=== PATIENT | male | born 1985 | race Two or more races ===

== ENCOUNTER 2025-05-11 12:03 | Emergency (ER) | payer MEDICAID, SELFPAY ==
--- NOTE | 2025-05-11 12:10 | EKG_ITS ---
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
[2025-05-11 12:20] VITALS: BP 133/84; PULSE 84; RESP 16; TEMP 36.6; O2SAT 98
--- NOTE | 2025-05-11 12:25 | XR_ITS ---
Examination: PA lateral chest 2 views TECHNIQUE: Upright PA lateral chest 2 views Date and time: May 11, 2025 1239 hours INDICATIONS: Chest pain today. FINDINGS: Normal heart size. Lungs are clear. Pectus of sclerotic deformity IMPRESSION: No active disease
--- NOTE | 2025-05-11 12:25 | PD.EDRME ---
Rapid Medical Screening Exam RME Arrival date/time: 05/11/25 12:03 39-year-old male with a history of type 2 diabetes presents to the emergency room with a chief complaint of left-sided sternal chest pain that radiates to his left arm x 2 days. Patient states he drank 5 energy drinks yesterday. I have greeted and performed a focused initial assessment of this patient. A comprehensive ED assessment and evaluation of the patient, analysis of all test results, and completion of the medical decision making process will be conducted by additional ED providers. Chief Complaint: General Adult/Misc Complain Time Seen by Provider: 05/11/25 12:08 Vital signs: Vital Signs Temperature 97.8 F 05/11/25 12:20 Pulse Rate 84 05/11/25 12:20 Respiratory Rate 16 05/11/25 12:20 Blood Pressure 133/84 H 05/11/25 12:20 Pulse Oximetry (%) 98 05/11/25 12:20 Oxygen Delivery Method Room Air 05/11/25 12:20 Vital signs reviewed by provider: Yes
[2025-05-11 12:53] LABS: Basophils # (Auto) 0.1 Thou/mm3 (0.0-0.2); Basophils % (Auto) 1 % (0-2.5); Eosinophils # (Auto) 0.2 Thou/mm3 (0.0-0.5); Eosinophils % (Auto) 2 % (0-10); Hematocrit 47.1 % (41.0-53.0); Hemoglobin 16.4 g/dL (13.5-16.0); Immature Granulocytes Auto 0.02 Thou/mm3 (0.00-0.00); Lymphocytes # (Auto) 3.0 Thou/mm3 (1.0-4.8); Lymphocytes % (Auto) 32 % (10-50); Mean Corpuscular HGB Conc 34.8 g/dl (31.0-37.0); Mean Corpuscular Hemoglobin 28.2 pg (25.0-35.0); Mean Corpuscular Volume 81 fL (80-100); Monocytes # (Auto) 0.7 Thou/mm3 (0.0-0.8); Monocytes % (Auto) 8 % (0-12); Neutrophils # (Auto) 5.3 Thou/mm3 (1.8-7.7); Neutrophils % (Auto) 56 % (37-80); Nucleated Red Blood Cell # 0.00 Thou/mm3 (0.00-0.00); Nucleated Red Blood Cell % 0 /100 WBC (0); Platelet Count 338 Thou/mm3 (140-440); RDW Standard Deviation 38.0 fL (35.1-43.9); Red Blood Count 5.81 Miln/mm3 (4.50-5.90); White Blood Count 9.4 Thou/mm3 (3.8-10.6)
[2025-05-11 13:04] LABS: Collection Type, Urine Clean Catch; Squamous Epithelial Cell,Urine 0 /hpf (0-5)
[2025-05-11 13:09] LABS: INR 1.0 (0.9-1.3); Partial Thromboplastin Time 27.6 Seconds (22.0-36.0); Prothrombin Time 10.7 Seconds (9.0-12.2)
[2025-05-11 13:10] LABS: B-Type Natriuretic Peptide < 20 pg/mL (0-100)
[2025-05-11 13:13] LABS: Bilirubin,Urine Negative (Negative); Blood,Urine Negative (Negative); Clarity,Urine Clear (Clear/Hazy); Color,Urine Colorless (Lt Yel-Yel); Culture Indicated,Urine Not Indicated; Glucose, Urine 4+ (Negative); Ketones,Urine Negative (Negative); Leukocyte Esterase,Urine Negative (Negative); Nitrite,Urine Negative (Negative); PH,Urine 6.0 (5.0-7.0); Protein,Urine Negative (Neg - Trace); RBC,Urine 1 /hpf (0-3); Specific Gravity,Urine 1.039 (1.001-1.035); Urobilinogen,Urine Negative mg/dL (0.0-1.0); WBC,Urine < 1 /hpf (0-5)
[2025-05-11 13:13] LABS: Alanine Aminotransferase 29 U/L (10-49); Albumin, Serum 4.8 gm/dL (3.5-5.0); Albumin/Globulin Ratio 1.5 (1.2-2.2); Alkaline Phosphatase 117 U/L (46-116); Anion Gap 15 (7-16); Aspartate Amino Transferase 24 U/L (0-34); BUN/Creatinine Ratio 10 Ratio (12-20); Bilirubin,Total 0.5 mg/dL (0.3-1.2); Blood Urea Nitrogen 12 mg/dL (9-23); Calcium 9.7 mg/dL (8.3-10.6); Calcium (Corrected) 9.7 mg/dL (8.5-10.1); Carbon Dioxide 26.9 mMol/L (20.0-31.0); Chloride 94 mMol/L (98-107); Creatinine (Component) 1.2 mg/dL (0.6-1.3); Estimated Creatinine Clearance 88.9 mL/min (>60); Globulin 3.1 gm/dL (2.3-3.5); Glucose 315 mg/dL (74-106); Magnesium 2.2 mg/dL (1.6-2.6); Osmolality,Calculated 283 (275-295); Potassium 3.8 mMol/L (3.4-5.1); Sodium 136 mMol/L (136-145); Total Protein 7.9 gm/dL (5.7-8.2); Troponin I < 0.020 ng/mL (0.0-0.045); eGFR > 60 See Note
[2025-05-11 13:23] LABS: Amphetamine/Methamp Scrn,U Negative (Negative); Barbiturate Screen,Urine Negative (Negative); Benzodiazepines Screen,Urine Negative (Negative); Benzoylecgonine Screen, Ur Negative (Negative); Fentanyl Screen,Urine Negative (Negative); Opiate Screen,Urine Negative (Negative); THC Screen,Urine Positive (Negative)
--- NOTE | 2025-05-11 14:25 | EDNOTE_ITS ---
ED General RME/HPI General Chief complaint: General Adult/Misc Complain Stated complaint: WANTS HEART CHECKED Time Seen by Provider: 05/11/25 12:08 Arrival date/time: 05/11/25 12:03 CC: Left anterior chest pain HPI ongoing for 1 day. Patient admits to drinking 5 energy drinks yesterday, and has had the chest pain since. The patient is a diabetic on insulin Jardiance and metformin. Patient denies fever chills shortness of breath or difficulty breathing. Patient's pain is reproducible with palpation demonstrated to me by the patient during the assessment and exam. RME / HPI RME / HPI narrative: 05/11/25 12:03 39-year-old male with a history of type 2 diabetes presents to the emergency room with a chief complaint of left-sided sternal chest pain that radiates to his left arm x 2 days. Patient states he drank 5 energy drinks yesterday. I have greeted and performed a focused initial assessment of this patient. A comprehensive ED assessment and evaluation of the patient, analysis of all test results, and completion of the medical decision making process will be conducted by additional ED providers. Related Data Home Medications ?Medication ?Instructions ?Recorded ?Confirmed metformin 1,000 mg tablet 1,000 mg PO DAILY 07/31/22 1 09/30/21 Previous Rx's ?Medication ?Instructions ?Recorded benzonatate 100 mg capsule 100 mg PO BID PRN cough #14 caps 08/22/22 ondansetron 4 mg disintegrating 4 mg PO Q8H PRN nausea and 08/22/22 tablet vomiting #20 tabs metoclopramide HCl 10 mg tablet 10 mg PO Q6H PRN nause a and 04/17/24 (Reglan) vomiting #20 tabs Allergies Allergy/AdvReac Type Severity Reaction Status Date / Time tomato Allergy Severe Hives Verified 05/11/25 12:08 Review of Systems Review of Systems Narrative Review of Systems: GEN: No fever, no chills, no weight loss EYES: No discharge, no visual changes, no pain HEENT: No ear pain, no congestion, no sore throat PULM: No shortness of breath, no cough, no congestion CV: + chest pain, no dyspnea on exertion, no palpitations GI: No nausea, no vomiting, no diarrhea, no pain, no constipation : No frequency, no urgency, no dysuria MUSC/SKEL: No joint pain, no back pain SKIN: No rash PSYCH: No hallucinations, no depression HEME/LYMPH: No easy bleeding or bruising tendencies NEURO: No weakness, no headache Past Medical History Past Medical History CARDIAC: Positive Cardiac Disorders and Hypercholesterolemia; Negative Congestive Heart Failure RESPIRATORY: Negative Chronic Obstructive Pulmonary Disease (COPD) GENITOURINARY: Negative Renal Disease ENDOCRINE: Positive Endocrine Disorders and Diabetes Mellitus Type 1; Negative Diabetes Mellitus Type 2 Family History FAMILY HISTORY: Negative Family Neurologic Problems, Family Psychiatric Problems, Family Respiratory Disorders, Family Cardiac Disorders, Family Gastrointestinal Problems, Family Cancer, Family Surgery or Family Anesthesia Reaction Social History SMOKING STATUS: Former smoker SUBSTANCE USE: marijuana (Daily) ED Exam Narrative Physical exam: [General: Anxious but not in any acute distress Head normocephalic HEENT: Within acceptable limits Neck is supple nontender Chest equal chest rise site-specific tenderness to the left lateral chest. No pain with palpation in any other area of the anterior chest. Respiratory: Clear to auscultation no wheezes crackles or rubs CV: Rate rhythm is regular no murmurs rubs or clicks Abdomen is soft nontender no masses positive bowel sounds all 4 quadrants Back: No CVA tenderness no spinous process tenderness from cervical spine thoracic and lumbar spine Skin: Intact no petechiae rash induration ulceration or crepitus Extremities: Moving all extremity against resistance cap refill less than 2 seconds neurosensory intact Neuro: Awake alert oriented x3 Glascow coma 15 no focal deficits] Course Quality Measures none Orders Category Date Time Status EKG (ED ONLY) *Do not use* NOW Care 05/11/25 12:10 Completed EKG (ED Only) Stat Exams 05/11/25 12:10 Draft XR chest 2V Stat Exams 05/11/25 12:25 Completed B-Type Natriuretic Peptide Stat Lab 05/11/25 12:40 Completed CBC Stat Lab 05/11/25 12:40 Completed Comprehensive Metabolic Panel Stat Lab 05/11/25 12:40 Completed Drug Screen,Urine Stat Lab 05/11/25 12:55 Completed Magnesium Stat Lab 05/11/25 12:40 Completed Partial Thromboplastin Time Stat Lab 05/11/25 12:40 Completed Prothrombin Time with INR Stat Lab 05/11/25 12:40 Completed Troponin I Stat Lab 05/11/25 12:40 Completed Urinalysis, C/S if Indicated Stat Lab 05/11/25 12:55 Completed Vital Signs Vital signs: Vital Signs Temperature 97.8 F 05/11/25 12:20 Pulse Rate 84 05/11/25 12:20 Respiratory Rate 16 05/11/25 12:20 Blood Pressure 133/84 H 05/11/25 12:20 Pulse Oximetry (%) 98 05/11/25 12:20 Oxygen Delivery Method Room Air 05/11/25 12:20 Discharge Plan Plan Patient Disposition: HOME (Self Care) Patient condition on transfer: Stable Prescriptions/Referrals Prescriptions/Med Rec: No Action metformin 1,000 mg tablet 1,000 mg PO DAILY benzonatate 100 mg capsule 100 mg PO BID PRN (Reason: cough) Qty: 14 0RF ondansetron 4 mg tablet,disintegrating 4 mg PO Q8H PRN (Reason: nausea and vomiting) Qty: 20 0RF metoclopramide HCl [Reglan] 10 mg tablet 10 mg PO Q6H PRN (Reason: nausea and vomiting) Qty: 20 0RF Referrals: No Primary/Family,Physician [Primary Care Provider] - In 1 week Marty De La Cruz MD [Physician, Family Practice] - In 1 week Problem List Clinical Impression: Chest wall pain, Hyperglycemia due to type 1 diabetes mellitus Patient/Caregiver Discharge Instructions Education Materials: ED Chest Pain, Uncertain Cause Additional Instructions: Stop drinking energy drinks. Follow-up with your primary care doctor make sure you monitor your blood glucose levels on a regular basis. Print Language: Swiss Stand Alone Forms: [place] Award Info., Work/School Release, Patient Portal Info Letter PA/SO Supervising Physician PA/[employer] MEMBER Supervising Physician: Fausto Ruiz ENP [facility] Clinical Information Provided by patient Medical Records Reviewed [facility] Labs/Rad/Tests considered, not Ordered None Chronic Illness/Social Conditions Add or document further as needed: Diabetic EKG EKG Interpretation narrative: EKG performed at 1221 shows a ventricular rate of 89 VA interval 159 QRS of 96 QTc of 401 this normal sinus rhythm. Lab Interpretation Lab(s) interpretation(s): CBC shows no acute leukocytosis anemia thrombocytopenia CMP shows no electrolyte imbalances other than elevated blood glucose level at 315. And a chloride of 94. Troponin within acceptable limits BMP within acceptable limits Urine shows hemoconcentration with 4+ glucose. No leukocyte esterase no bacteria. UDS is positive for marijuana. Renal impairment transaminitis or T. bili elevation. Imaging Provider imaging interpretation(s): Chest x-ray as interpreted by me read by radiology is negative for any acute finding requires emergent or immediate intervention. Medication Administration(s) none Diagnosis Differential diagnosis: ACS DE pneumonia Most likely dx, and/or detailed dx discussion: Chest wall pain Dispositon Disposition: Discharge Home
== END 2025-05-11 14:53 | disposition home or self-care (01) ==
PROVIDERS: Nurse Practitioner Family; Emergency Provider Emergency Medicine; Referring Provider Emergency Medicine
DX: R07.89 Other chest pain (principal); E10.65 Type 1 diabetes mellitus with hyperglycemia
CPT/HCPCS: 36415; 71046; 80053; 80307; 81001; 83735; 83880; 84484; 85025; 85610; 85730; 93005; 99283